=== PATIENT | female | born 1950 | race Hispanic/Latino ===

== ENCOUNTER 2018-05-16 07:06 | Day surgery (SDC) | payer MEDICARE, OTHER, BC ==
[2018-05-14 09:51] VITALS: BMI 31.2
[2018-05-16] MEDS ORDERED: Naloxone 0.4 mg/ml Inj (Adult) ONE (08:53)
[2018-05-16] MEDS ORDERED: Midazolam 2 MG/2 ML VIAL ONE (08:53)
[2018-05-16] MEDS ORDERED: Flumazenil 0.1 mg/ml Inj (5ml) IVP ONE (08:53)
[2018-05-16] MEDS ORDERED: Midazolam 2 MG/2 ML VIAL IV ONE ×2 (08:58→09:04)
--- NOTE | 2018-05-16 09:46 | CARD ---
APPROVED REPORT Date of service: 05/16/2018 EXAM: Transesophageal echocardiogram with color flow Doppler. INDICATION Aortic Valve Disease Mitral Valve Disease MITRAL REGURGE Reason For Test : valve disease PROCEDURE After obtaining informed consent, patient underwent transesophageal echo in the Echo Lab. Type of Sedation : Conscious Sedation Sedation was achieved with Versed, Fentanyl intravenously. Transesophageal probe was inserted and advanced into esophagus without difficulty. The IVANIA was performed without complications. Throughout the procedure, the blood pressure, pulse oximetry, cardiac rhythm, and rate were monitored. The patient tolerated the procedure without adverse effects. Recovery from conscious sedation was uneventful and vital signs were stable. LEFT VENTRICLE The left ventricle is normal size. There is normal left ventricular wall thickness. Left ventricle systolic function is mildly impaired. The Ejection Fraction is 50-55%. There is global hypokinesis of the left ventricle. RIGHT VENTRICLE The right ventricle is normal size. The right ventricular systolic function is normal. ATRIA No thrombus or spontaneous contrast is seen in the left atrial appendage. The left atrium is mildly dilated. The right atrium size is normal. The interatrial septum is intact with no evidence for an atrial septal defect. AORTIC VALVE The aortic valve is trileaflet. There is moderate aortic regurgitation. There is no aortic valvular vegetation. MITRAL VALVE The mitral valve leaflets are mildly thickened. A torn chordae is suspected involving the posterior leaflet. There is no mitral valve stenosis. The mitral regurgitant jet is anteriorly directed, which is consistent with posterior leaflet pathology. Mitral regurgitation is severe. TRICUSPID VALVE The tricuspid valve is normal in structure. There is mild tricuspid regurgitation. PULMONIC VALVE The pulmonary valve is normal in structure. There is mild pulmonic valvular regurgitation. GREAT VESSELS The aortic root is normal in size. The ascending aorta is normal in size. There is no atherosclerotic plaque in the descending aorta. The IVC is normal in size and collapses >50% with inspiration. PERICARDIAL EFFUSION There is no pericardial effusion. There is no pleural effusion. <Conclusion> Dilated LA. Normal LV size with mild global hypokinesis. Severe eccentric MR. Moderate AI. Mild TR and PI.
[2018-05-16] MEDS ORDERED: Levothyroxine 75 MCG TAB PO SCH (10:00)
[2018-05-16 10:19] VITALS: PULSE 65; RESP 20; TEMP 97.4
[2018-05-16 10:41] VITALS: BP 130/78; O2SAT 98
== END 2018-05-16 11:40 | disposition home or self-care (01) ==
LOC: SDSVAS 07:06
PROVIDERS: ATTEND Internal Medicine Cardiovascular Disease
DX: I08.3 Combined rheumatic disorders of mitral, aortic and tricuspid valves (principal)
CPT/HCPCS: 93312; J2250; J3010

== ENCOUNTER 2018-07-04 06:06 | Day surgery (SDC) | payer MEDICARE, OTHER, BC ==
[2018-05-14 09:51] VITALS: BMI 31.2
[2018-07-04] MEDS ORDERED: Phenylephrine 10 mg/ml Inj ONE (06:58)
[2018-07-04] MEDS ORDERED: Iodixanol 320 MG/ML 100 ML BOTTLE IV ONE (06:59)
[2018-07-04] MEDS ORDERED: Iohexol 350mgl/ml 50 ML ONE (06:59)
[2018-07-04] MEDS ORDERED: Iodixanol 320 MG/ML 200 ML BOTTLE IV ONE ×2 (06:59→07:41)
[2018-07-04] MEDS ORDERED: Nitroglycerin 50mg in D5W 0 MG/0 ML BOTTLE IV ONE (06:59)
[2018-07-04 07:21] VITALS: RESP 20
[2018-07-04] MEDS ORDERED: Midazolam 2 MG/2 ML VIAL ONE ×2 (07:38→07:46)
[2018-07-04 08:10] LABS: ARTERIAL BLOOD GAS HEMOGLOBIN 11.5 g/dL (11.7-17.4); ARTERIAL BLOOD GAS O2 CAPACITY 15.8 mL/dl (16-24); ARTERIAL BLOOD GAS O2 CONTENT 15.1 ML/dl (15-23); ARTERIAL BLOOD GAS O2 SAT 95.5 % (95-98); ARTERIAL BLOOD GAS PCO2 46 mm/Hg (35-45); ARTERIAL BLOOD GAS PH 7.36 (7.35-7.45); ARTERIAL BLOOD GAS TCO2 27.4 mmol.L (22-28)
[2018-07-04 08:11] LABS: VENOUS BLOOD GAS BASE EXCESS 0.5 mmol/L (0.0-2.0); VENOUS BLOOD GAS PO2 41 mm/Hg (30-55); VENOUS BLOOD PH 7.34 (7.32-7.43)
[2018-07-04] MEDS ORDERED: Sodium Chloride 0.9% 1,000 ML IV SCH (08:30)
[2018-07-04 08:52] VITALS: TEMP 97.5
[2018-07-04 08:56] VITALS: O2SAT 93
[2018-07-04 11:19] VITALS: BP 109/62; PULSE 63
--- NOTE | 2018-07-04 12:09 | CARDCATH ---
Copied To: Denilson Pringle MD Attending MD: Denilson Pringle MD CARDIAC CATHETERIZATION REPORT PROCEDURE DATE: 07/04/2018 PROCEDURES: 1. Right and left heart catheterization. 2. Selective left and right coronary angiography. 3. Right femoral arteriography. 4. Proximal ascending aortography. 5. Angio-Seal deployment. HISTORY: This is a 67-year-old woman recently found to have severe mitral regurgitation. A stress test was suggestive of inferior ischemia, and cardiac catheterization was advised. INDICATIONS: 1. Abnormal stress test. 2. Severe mitral regurgitation. FINDINGS: HEMODYNAMICS: The right heart pressures were as follows. The RA mean pressure was 4. The RV pressure was 26/4. The pulmonary artery pressure was 27/7. The pulmonary capillary wedge pressure was 12. The cardiac output by thermodilution method is 5.7 L/minute with cardiac index of 3.3 L/minute/m2. Cardiac output was also calculated by Le method, revealing cardiac output 7.2 L /minute with cardiac index of 4.2 L/minute/m2. The arterial oxygen saturation is 95.5% with a venous saturation of 76.3%. CORONARY ANATOMY: 1. The left mainstem was normal. 2. The left anterior descending artery and its branches were normal. 3. The left circumflex artery and its branches were normal as well. 4. The right coronary artery was dominant and normal. LEFT VENTRICULOGRAPHY: 1. A left ventriculogram was performed with power injection in the ARVIZU projection. This revealed normal wall motion and ejection fraction of 55%, 3 to 4+ mitral regurgitation was noted. 2. Ascending aortogram was performed, revealing a normal aortic size with 1+ aortic insufficiency. RIGHT FEMORAL ARTERIOGRAPHY: A right femoral arteriogram was performed revealing no evidence of significant disease. The puncture site appeared to be just above the bifurcation of the SFA and profunda branches. This was then closed with deployment of an Angio-Seal device. The venous sheath was removed with manual pressure applied to achieve adequate hemostasis. CONCLUSION: 1. Severe mitral regurgitation. 2. Normal LV systolic function. 3. Normal coronary arteries. 4. Normal right heart pressures. RECOMMENDATIONS: Given the above findings, consideration will be given to possible attempts at mitral valve repair. The alternative of conservative management with serial echocardiographic followup will be presented as well. Denilson Pringle MD [facility] # [id number]
== END 2018-07-04 12:10 | disposition home or self-care (01) ==
LOC: CATH 06:06
PROVIDERS: ATTEND Internal Medicine Cardiovascular Disease
DX: I34.0 Nonrheumatic mitral (valve) insufficiency (principal); R94.39 Abnormal result of other cardiovascular function study
CPT/HCPCS: 36415; 82803 ×2; 86850; 86900; 93460; 93567; 99152; C1760; C1894; J1644; J2250; J3010; J7030; J7040; Q9966

== ENCOUNTER 2019-01-11 09:11 | Outpatient (CLI) | payer MEDICARE, OTHER, BC | END 2019-01-11 09:12 | disposition home or self-care (01) | LOC: RAD 09:11 ==

== ENCOUNTER 2019-01-15 09:47 | Outpatient (CLI) | payer MEDICARE, OTHER, BC | END 2019-01-15 09:48 | disposition home or self-care (01) | LOC: RAD 09:47 ==